=== PATIENT | male | born 1985 | race Caucasian/White ===

== ENCOUNTER 2019-07-25 13:52 | Emergency (ER) | payer OTHER, SELFPAY ==
[2019-07-25 13:58] VITALS: BP 219/129; PULSE 97; RESP 17; TEMP 36.1; O2SAT 97
--- NOTE | 2019-07-25 14:26 | ED.LOWEXIN ---
HPI - Extremity Injury (Lower) General Chief Complaint: Extremity Problem,Nontraumatic Stated Complaint: R leg discoloration Time Seen by Provider: 07/25/19 14:09 Source: patient and RN notes reviewed Mode of arrival: ambulatory Limitations: no limitations History of Present Illness HPI Narrative: A 34 y/o male presents to the ED with discoloration to his lower rt leg beginning roughly 1 month ago. He reports that over the past couple days he developed some rt lower leg edema, so he decided to come to the ED. He notes that he has been wearing compression socks but denies it alleviating his symptoms. He denies any fevers, chills, N/V/D, or CP. complaint: other (Discoloration to rt lower leg) Onset (ago): month(s) (1) Relieving factors: nothing Context: other (Unknown) Associated symptoms: swelling Other symptoms: none Treatments prior to arrival: other (compression socks) Related Data Home Medications Medication Instructions Recorded Confirmed amlodipine 07/25/19 chlorthalidone 07/25/19 lisinopril 07/25/19 metoprolol succinate PO 07/25/19 Allergies Allergy/AdvReac Type Severity Reaction Status Date / Time amoxicillin Allergy Unknown Rash Verified 07/25/19 14:01 Review of Systems Review of Systems: All systems reviewed & are unremarkable except as noted in HPI and below Constitutional: Constitutional: Denies chills and Denies fever(s) Cardiovascular: Cardiovascular: Denies chest pain Gastrointestinal: Gastrointestinal: Denies diarrhea, Denies nausea and Denies vomiting Integumentary/Breasts: Skin/Breast: Reports swelling (lower rt leg) and Reports change in pigmentation (lower rt leg) PMFSH Past Medical History Medical History Cardiomegaly H/O: HTN (hypertension) Surgical History Surgical History Surgical history unknown Social History Social History (Updated 07/25/19 @ 14:58 by Santi Thompson) Smoking status: Smoker, status unknown Second hand tobacco smoke exposure: Yes Gender identity (if verbalized by the patient): Male Exam Narrative: Exam Narrative: General appearance: Well-developed, well-nourished Skin: Normal color, brownish discoloration medial side of the right leg distally, no open skin, no erythema, no warmth, no discharge, 2+ edema bilaterally up to the mid calf. Patient is wearing compression stockings right now Head: Normocephalic, nontraumatic Eyes: Clear conjunctiva ENT: Oropharynx normal, ears normal, nose normal Neck: Supple, nontender Chest and respiratory: Airway patent, no respiratory distress, no accessory muscle use Heart: Regular rate/rhythm Abdomen: Soft, nontender, no organomegaly, quiet bowel sounds Vascular: Normal peripheral pulses, normal capillary refill. Musculoskeletal: Normal range of motion, nontender back Neurologic: Alert and oriented ?3, [employer] is normal as tested, no gross motor deficit Course Course Emergency Course: Stable Vital Signs Vital signs: Vital Signs Temperature 36.1 C L 07/25/19 13:58 Pulse Rate 97 07/25/19 13:58 Respiratory Rate 17 07/25/19 13:58 Blood Pressure 219/129 H 07/25/19 13:58 Pulse Oximetry 97 07/25/19 13:58 Temperature 36.1 C L 07/25/19 13:58 Pulse Rate 97 07/25/19 13:58 Respiratory Rate 17 07/25/19 13:58 Blood Pressure 219/129 H 07/25/19 13:58 Pulse Oximetry 97 07/25/19 13:58 MDM - Extremity Injury (Lower) MDM Narrative Medical decision making narrative: History of lower legs edema, patient been using compression stocking intermittently. Patient noticed discoloration of the lower extremity mainly right lower leg o
[2019-07-25 15:00] VITALS: BP 155/82; PULSE 88; RESP 18; O2SAT 97
[2019-07-25 15:07] LABS: Basophils Absolute Auto 0.1 K/mm3 (0.0-0.1); Basophils Percent Auto 0.5 % (0.2-1.2); Eosinophils Absolute Auto 0.1 K/mm3 (0-0.3); Eosinophils Percent Auto 0.9 % (0-4.4); Hematocrit 44.2 % (42.0-52.0); Immature Granulocyte Absolute 0.06 K/mm3 (0.00-0.031); Immature Granulocyte Percent A 0.5 % (0-0.5); Lymphocytes Absolute Auto 3.17 K/mm3 (0.9-3.2); Mean Corpuscular HGB Conc 33.9 g/dl (32-36); Mean Corpuscular Hemoglobin 28.1 pg (26-34); Mean Corpuscular Volume 82.8 fl (80-100); Mean Platelet Volume 9.8 fl (7.4-10.4); Monocytes Percent Auto 7.4 % (2.6-8.5); Neutrophils Absolute Auto 8.8 K/mm3 (1.3-6.7); Neutrophils Percent Auto 66.7 % (45.5-73.1); Platelet Count Result 310 k/mm3 (150-375); Red Blood Count 5.34 M/mm3 (4.6-6.20); Red Cell Distribution Width 12.3 % (11.5-14.5); White Blood Count 13.2 K/mm3 (4.5-10.0)
[2019-07-25 15:20] LABS: Alanine Aminotransferase 49 U/L (4-50); Albumin Level 4.9 g/dL (3.5-5.1); Alkaline Phosphatase 79 U/L (38-126); Aspartate Amino Transferase 50 U/L (17-59); Bilirubin,Total 0.6 mg/dL (0.2-1.3); Blood Urea Nitrogen 13 mg/dL (9-20); Calcium 9.7 mg/dL (8.4-10.2); Carbon Dioxide 29 mmol/L (22-30); Chloride 99 mmol/L (98-107); Estimated CRCL calculation 217 ml/min; Estimated Glomerular Filt Rate > 60; Glucose 145 mg/dL (75-110); Potassium 3.2 mmol/L (3.4-5.0); Sodium 138 mmol/L (137-145)
[2019-07-25 15:24] LABS: D Dimer 0.48 ug/mL (<0.48)
[2019-07-25 15:58] VITALS: BP 125/70; PULSE 84; RESP 26; O2SAT 97
== END 2019-07-25 15:59 | disposition home or self-care (01) ==
PROVIDERS: Emergency Provider Emergency Medicine; PCP Family Medicine Sports Medicine
DX: I87.2 Venous insufficiency (chronic) (peripheral) (principal); I10 Essential (primary) hypertension
CPT/HCPCS: 36415; 80053; 85025; 85380; 99283